=== PATIENT | male | born 1960 | race Caucasian/White ===

== ENCOUNTER 2016-09-03 17:02 | Emergency (ER) | payer MEDICAID ==
[2016-09-03 18:50] VITALS: BP 130/64
== END 2016-09-03 18:50 | disposition home or self-care (01) ==
LOC: ED 17:02
DX: T15.02XA Foreign body in cornea, left eye, initial encounter (principal); R51 Headache; Z79.1 Long term (current) use of non-steroidal anti-inflammatories (NSAID); Z87.01 Personal history of pneumonia (recurrent); X58.XXXA Exposure to other specified factors, initial encounter; Y93.89 Activity, other specified; Y92.89 Other specified places as the place of occurrence of the external cause; Y99.8 Other external cause status

== ENCOUNTER 2017-03-26 06:26 | Emergency (ER) | payer MEDICAID ==
[~2017-03-26] VITALS: Ht 165.1 cm; Wt 81.6 kg
[2017-03-26 06:32] VITALS: Ht 165.1 cm; Wt 81.6 kg
[2017-03-26 08:24] VITALS: BP 120/81
== END 2017-03-26 08:24 | disposition home or self-care (01) ==
LOC: ED 06:26
DX: J06.9 Acute upper respiratory infection, unspecified (principal)

== ENCOUNTER 2018-05-12 19:30 | Emergency (ER) | payer MEDICAID ==
[~2018-05-12] VITALS: Ht 167.6 cm; Wt 87.1 kg
[2018-05-12 19:45] VITALS: Ht 167.6 cm; Wt 87.1 kg
[2018-05-12 20:22] VITALS: BP 133/75
== END 2018-05-12 20:22 | disposition home or self-care (01) ==
LOC: ED 19:30
DX: T28.0XXA Burn of mouth and pharynx, initial encounter (principal); X08.8XXA Exposure to other specified smoke, fire and flames, initial encounter; Y93.89 Activity, other specified; Y92.89 Other specified places as the place of occurrence of the external cause; Y99.8 Other external cause status

== ENCOUNTER 2019-06-08 20:09 | Emergency (ER) | payer MEDICAID ==
[~2019-06-08] VITALS: Ht 170.2 cm; Wt 80.3 kg
[2019-06-08 20:12] VITALS: BP 139/78; Ht 170.2 cm; Wt 80.3 kg
== END 2019-06-08 22:16 | disposition home or self-care (01) ==
LOC: ED 20:09
DX: J40 Bronchitis, not specified as acute or chronic (principal); J06.9 Acute upper respiratory infection, unspecified
CPT/HCPCS: 87804; J1885

== ENCOUNTER 2020-04-17 15:27 | Emergency (ER) | payer MEDICAID, SELFPAY ==
[~2020-04-17] VITALS: Ht 172.7 cm; Wt 81.6 kg
[2020-04-17 15:30] VITALS: BP 151/78; Ht 172.7 cm; Wt 81.6 kg
== END 2020-04-17 18:35 | disposition home or self-care (01) ==
LOC: ED 15:27
DX: U07.1 COVID-19 (principal); J12.89 Other viral pneumonia
CPT/HCPCS: U0003